=== PATIENT | female | born 1965 | race Caucasian/White ===

== ENCOUNTER 2021-01-13 17:30 | Emergency (ER) | payer OTHER ==
[~2021-01-13] VITALS: Ht 165.1 cm; Wt 77.1 kg
[2021-01-13] MEDS ORDERED: NAPROSYN500 MG PO (19:52)
== END 2021-01-13 20:15 | disposition home or self-care (01) ==
LOC: ED 17:30
DX: M77.8 Other enthesopathies, not elsewhere classified (principal); Z88.2 Allergy status to sulfonamides

== ENCOUNTER 2022-06-10 22:38 | Emergency (ER) | payer OTHER ==
[~2022-06-10] VITALS: Ht 165.1 cm; Wt 81.6 kg
[~2022-06-10 22:38] MED LIST: NAPROSYN500 MG PO
[2022-06-10 23:48] LABS: BASO % 0.4 % (0.0-1.0); EOS # 0.1 10*3/uL (0.0-0.4); EOS % 1.2 % (1.0-4.0); HEMATOCRIT 42.1 % (37.0-47.0); LYMPH # 1.4 10*3/uL (1.3-4.4); LYMPH % 28.5 % (27.0-41.0); MEAN CELL VOLUME 94.4 fl (81.0-99.0); MEAN CORPUSCULAR HGB 30.7 pg (27.0-31.0); MEAN CORPUSCULAR HGB CONC 32.5 g/dl (33.0-37.0); MEAN PLATELET VOLUME 10.2 fl (9.6-12.3); MONO # 0.3 10*3/uL (0.1-1.0); MONO % 6.7 % (3.0-9.0); NEUT # 3.1 10*3/uL (2.3-7.9); PLATELET COUNT AUTOMATED 249 10*3/uL (130-400); RED BLOOD COUNT 4.46 10*6/uL (4.10-5.10); RED CELL DISTRI WIDTH 13.9 % (0-14.5)
[2022-06-11 00:03] LABS: ALKALINE PHOSPHATASE 57 U/L (45-117); BUN 8 mg/dl (7-24); CHLORIDE 109 mmol/L (98-107); CREATININE 0.74 mg/dL (0.55-1.02); POTASSIUM 3.6 mmol/L (3.5-5.1); SGOT/AST 13 IU/L (3-35); SGPT/ALT 18 U/L (12-78); SODIUM 141 mmol/L (136-145); TOTAL PROTEIN 6.8 gm/dL (6.4-8.2)
[2022-06-11] MEDS ORDERED: CEFDINIR300 MG PO (02:28)
[2022-06-11] MEDS ORDERED: BENZONATATE100 M1 PO (02:28)
== END 2022-06-11 02:30 | disposition home or self-care (01) ==
LOC: ED 22:38
PROVIDERS: Emergency Medicine
DX: H66.91 Otitis media, unspecified, right ear (principal); Z20.822 Contact with and (suspected) exposure to COVID-19; J06.9 Acute upper respiratory infection, unspecified; F17.200 Nicotine dependence, unspecified, uncomplicated; Z88.2 Allergy status to sulfonamides; Z79.899 Other long term (current) drug therapy; Z98.890 Other specified postprocedural states